=== PATIENT | female | born 1980 | race American Indian/Alaskan Native ===

== ENCOUNTER 2017-01-24 15:25 | Outpatient (CLI) | payer MEDICAID ==
--- NOTE | 2017-01-25 11:12 | Mammography Report ---
BILATERAL DIGITAL SCREENING MAMMOGRAM with CAD: 01/24/17 15:25:00 CLINICAL: Baseline screening. FINDINGS: The breasts are almost entirely fatty. No mass, architectural distortion or suspicious calcifications. IMPRESSION: No mammographic evidence of malignancy. BI-RADS CATEGORY: 1 - - Negative RECOMMENDATION: Routine mammographic screening in one year. COMMENT: Patient follow-up letters are generated by our [employer] application.
== END 2017-01-24 15:26 | disposition home or self-care (01) ==
LOC: SPVWC 15:25
PROVIDERS: ATTEND Obstetrics & Gynecology
DX: Z12.31 Encounter for screening mammogram for malignant neoplasm of breast (principal)
CPT/HCPCS: 77067; G0202

== ENCOUNTER 2019-03-06 09:47 | Day surgery (SDC) | payer MEDICAID ==
[2019-03-06] MEDS ORDERED: fentaNYL 250 MCG/5 ML INJ ONE (10:24)
[2019-03-06] MEDS ORDERED: PHENYLEPHRINE/NS 1,000 MCG/10 ML SYRINGE (OR USE) IV ONE (10:24)
[2019-03-06] MEDS ORDERED: dexAMETHasone 20 MG/5 ML VIAL ONE (10:24)
[2019-03-06] MEDS ORDERED: ONDANSETRON 4 MG/2 ML INJ ONE (10:24)
[2019-03-06] MEDS ORDERED: GLYCOPYRROLATE 0.4 MG/2 ML INJ ONE (10:24)
[2019-03-06] MEDS ORDERED: ROCURONIUM 50 MG/5 ML INJ IV ONE (10:24)
[2019-03-06] MEDS ORDERED: LIDOCAINE MPF (2%) 20 MG/1 ML VIAL 5 ML ONE (10:24)
[2019-03-06] MEDS ORDERED: NEOSTIGMINE 10MG/10 ML INJ MDV ONE (10:24)
[2019-03-06] MEDS ORDERED: BUPIVACAINE/PF (0.5%) 5 MG/1 ML 10 ML VIAL INFILTRATI ONE ×3 (10:25→12:04)
[2019-03-06] MEDS ORDERED: PROPOFOL 200 MG/20 ML VIAL IV ONE (10:25)
--- NOTE | 2019-03-06 10:44 | Anesthesia Consultation ---
Anesthesia Consult and Med Hx Date of service: 03/06/19 - Airway Anesthetic Teeth Evaluation: Good ROM Head & Neck: Adequate Mental/Hyoid Distance: Adequate Mallampati Class: Class II Intubation Access Assessment: Good - Pulmonary Exam CTA: Yes - Cardiac Exam Cardiac Exam: RRR - Pre-Operative Health Status ASA Pre-Surgery Classification: ASA2 Proposed Anesthetic Plan: General (HTN, Anxiety, Asthma) - Pulmonary Hx Asthma: Yes (PRN NEBS/INH) - Cardiovascular System Hx Hypertension: Yes (X 3YRS) - Central Nervous System Hx Seizures: No Hx Back Pain: Yes Hx Psychiatric Problems: Yes - Endocrine Hx Renal Disease: No Hx Hypothyroidism: No Hx Hyperthyroidism: No - Hematic Hx Anemia: No Hx Sickle Cell Disease: No - Other Systems Hx Alcohol Use: Yes Hx Substance Use: No Hx Obesity: Yes
--- NOTE | 2019-03-06 10:44 | Anesthesia Day of Surgery ---
Anesthesia Day of Surgery - Day of Surgery Patient Examined: Yes Patient H&P Reviewed: Yes Patient is NPO: Yes
[2019-03-06] MEDS ORDERED: fentaNYL 100 MCG/2 ML INJ IV PRN (10:45)
[2019-03-06] MEDS ORDERED: ONDANSETRON 4 MG/2 ML INJ IV PRN (10:45)
[2019-03-06] MEDS ORDERED: LACTATED RINGERS 1,000 ML IV SCH (11:00)
[2019-03-06] MEDS ORDERED: MIDAZOLAM 2 MG/2 ML INJ IV NR (11:00)
--- NOTE | 2019-03-06 11:15 | Short Stay Summary ---
Short Stay Documentation Date of service: 03/06/19 Narrative H&P: 38y/o with acute pelvic pain. Pelvic ultrasound demonstrated findings of a right ovarian cyst. The patient states the pain is worsening. - History Principal diagnosis: Ovarian cyst Past Medical History: hypertension, other (bronchitis) Past Surgical History: Other (laparoscopy) Social history: single - Allergies and Medications Current Medications: Allergies No Known Allergies Allergy (Unverified 05/22/14 14:22) Home Medications Medication Instructions Recorded Confirmed Last Taken Type ALBUTEROL Inhaler (OR & NICU) 2 puff IH QID PRN 05/22/14 03/05/19 05/22/14 History [Proair] ALBUTEROL NEB's [Proventil 0.083% 1 applic PO BID 05/22/14 03/05/19 05/22/14 History NEBS] ALPRAZolam [Xanax TAB] 0.25 mg PO TID PRN 03/05/19 03/05/19 Unknown History Bupropion HCl [Wellbutrin XL] 300 mg PO QAM 03/05/19 03/05/19 Unknown History Escitalopram [Lexapro] 10 mg PO DAILY 03/05/19 03/05/19 Unknown History Gabapentin [Neurontin] 300 mg PO Q8HR 03/05/19 03/05/19 Unknown History Losartan [Cozaar] 100 mg PO QDAY 03/05/19 03/05/19 Unknown History Zolpidem [Ambien] 5 mg PO QHS PRN 03/05/19 03/05/19 Unknown History cloNIDine [Catapres] 0.1 mg PO BID 03/05/19 03/05/19 Unknown History Active Medications Fentanyl (Sublimaze) 50 mcg IV Q5MIN PRN PRN Reason: Pain , Severe (7-10) Stop: 03/06/19 23:59 Lactated Ringer's (Lactated Ringers) 1,000 mls @ 100 mls/hr IV DIRECT MADHU Midazolam HCl (Versed) 2 mg IV PREOP NR Stop: 03/06/19 23:59 Ondansetron HCl (Zofran) 4 mg IV ONCE PRN PRN Reason: Nausea And Vomiting - Physical exam General appearance: no acute distress Integumentary: no rash HEENT: Atraumatic Lungs: Clear to auscultation Breasts: deferred Heart: Regular rate Gastrointestinal: normal Female Genitourinary: deferred Rectal Exam: deferred Extremities: no ischemia Neurological: Normal gait - Brief post op/procedure progress note Date of procedure: 03/06/19 Pre-op diagnosis: ovarian cyst; pelvic pain Post-op diagnosis: same Procedure: Laparoscopy Ovarian cystotomy Anesthesia: GETA Surgeon: LEW ARROYO Estimated blood loss: minimal Pathology: list (ovarian cyst fluid) Specimen disposition: to lab Condition: stable - Hospital course Hospital course: The patient was admitted the day of surgery and underwent a laparoscopy. Please see operative note for details of surgery. Postoperative course was uneventful. - Disposition Condition at discharge: Good Disposition: DC-01 TO HOME OR SELFCARE Short Stay Discharge Plan Activity: other (pelvic rest for 1 week) Diet: regular Additional Instructions: Schedule follow-up with Dr. Holly in 2-4 weeks Prescriptions: Ibuprofen [Motrin] 800 mg PO Q8HR PRN #60 tablet PRN Reason: Pain, Mild (1-3) oxyCODONE /ACETAMINOPHEN [Percocet 5/325] 1 tab PO Q6HR PRN #20 tablet PRN Reason: Pain
[2019-03-06] MEDS ORDERED: SODIUM CHLORIDE 0.9% IRR 1,500 ML BOTTLE IR ONE (12:08)
[2019-03-06] MEDS ORDERED: SUGAMMADEX SODIUM 200 MG/2 ML VIAL IV ONE (12:13)
--- NOTE | 2019-03-06 12:20 | Operative Report ---
Operative Report Operative Report: Date of surgery: 03/06/2019 Preoperative diagnosis: Right ovarian cyst; acute pelvic pain Postoperative diagnosis: Same as above Procedure: Laparoscopy; ovarian cystotomy Surgeon: Catia Holly M.D. Anesthesia: General endotracheal anesthesia Estimated blood loss: minimal Findings: Right ovarian simple cyst; normal uterus and tubes Indication: 38-year-old with a history of worsening pelvic pain. Pelvic ultrasound was performed that demonstrated findings of a right ovarian cyst approximately 3.4 cm. Procedure: The patient was taken to the operating room and given general endotracheal anesthesia without complication. The patient is prepped and draped in a normal sterile fashion. A bivalve speculum was placed in the patient's vagina and a single-tooth tenaculum was placed on the anterior lip of the cervix .A uterine acorn manipulator was placed, and the bivalve speculum was then removed. Attention was then turned to the patient's abdomen where a 5 mm infraumbilical skin incision was then made. A Veress needle was placed and peritoneal entry was verified water-filled syringe. Insufflation of the peritoneal cavity was performed with CO2 gas. A 5 mm trocar was placed and the laparoscope was then inserted. The patient was then placed in Trendelenburg. A 5 mm suprapubic skin incision was then made. Under direct visualization a 5 mm trocar was then placed. General survey of the patient's abdomen revealed simple right ovarian cyst, normal uterus and tubes bilaterally, normal left ovary. Attention was then turned to the patient's right ovary. A syringe was injected into the ovarian cortex with aspiration of clear cystic fluid. The fluid was sent to cytology for further evaluation. It was no evidence of active bleeding coming from the ovary. General survey of the pelvis did not indicate findings of endometriosis or pelvic adhesive disease. The 5 mm trocar was then removed. The pneumoperitoneum was then released. The 5 mm Optiview trocar was then removed. The skin incisions were then closed with 4-0 Monocryl. The incisions were injected with quarter percent Marcaine. Dressings were applied to the incision. The vaginal instruments were then removed atraumatically. Then successfully extubated and taken to the recovery room. All sponge laps and needle counts were correct x2.
[2019-03-06] MEDS ORDERED: oxyCODONE /ACETAMINOPHEN 5-325MG TAB PO PRN (13:10)
--- NOTE | 2019-03-06 13:46 | Post Anesthesia Evaluation ---
- Post Anesthesia Evaluation Patient Participated: Yes Airway Patent: Yes Stable Respiratory Function: Yes Nausea/Vomiting: No Temp > 96.8F: Yes Pain Manageable: Yes Adequeate Hydration: Yes Anesthesia Complications: No Block Receding Appropriately: Not Applicable Patient on Ventilator: No
[2019-03-06 14:45] VITALS: BP 135/87
== END 2019-03-06 14:35 | disposition home or self-care (01) ==
LOC: OR 09:47
PROVIDERS: ATTEND Obstetrics & Gynecology
DX: N83.201 Unspecified ovarian cyst, right side (principal); I10 Essential (primary) hypertension; J45.909 Unspecified asthma, uncomplicated; F41.9 Anxiety disorder, unspecified; E66.9 Obesity, unspecified; Z72.89 Other problems related to lifestyle; Z88.8 Allergy status to other drugs, medicaments and biological substances; Z79.899 Other long term (current) drug therapy; Z68.41 Body mass index [BMI] 40.0-44.9, adult; Z98.890 Other specified postprocedural states
CPT/HCPCS: 58679; 81025; 88112; J1100; J2370; J2405; J2704; J2710; J3010; J7120

== ENCOUNTER 2020-07-29 08:23 | Day surgery (SDC) | payer MEDICAID ==
[~2020-07-29 08:23] MED LIST: SODIUM CHLORIDE 0.9% 1000 ML 1,000 ML IV SCH
--- NOTE | 2020-07-29 10:23 | Operative Report ---
Operative Report Operative Report: DATE: 07/29/2020 SURGERY: Upper endoscopy. SURGEON: Mandi Chester M.D. PROCEDURE: EGD with biopsy PRE OP DX: morbid obesity, GERD POST OP DX: morbid obesity, GERD TYPE OF ANESTHESIA: MAC. ESTIMATED BLOOD LOSS: None. COMPLICATIONS: None. SPECIMENS REMOVED: antral biopsy FINDINGS: 1. Small hiatal hernia. 2. Otherwise, normal esophagus, stomach and first portion of duodenum. INDICATIONS:INDICATION FOR PROCEDURE: Patient is a 39-year-old female with a long history of morbid obesity. She is planned to have a weight loss procedure and is here for preoperative planning EGD. PROCEDURE DETAILS: After consent was reviewed, patient was taken back to the operating room where patient was placed in the left lateral decubitus position and a bite block was placed in the mouth. After a time-out was called, MAC anesthesia was initiated. I then passed the endoscope into her oropharynx, into her esophagus, visualized the entire esophagus, which was all within normal limits. Z-line was noted to about 36 cm from incisors. I then visualized the stomach and the first portion of the duodenum and there were no abnormalities I could clearly visualize except for antral gastritis. A cold forceps biopsy of the antrum was taken and will be sent to pathology to evaluate for H.pylori. I then retroflexed the scope in the stomach and visualized the hiatus and I could see a small hiatal hernia. I then desufflated the stomach and removed the endoscope. Patient tolerated procedure well and was transferred to recovery room in good and stable condition.
--- NOTE | 2020-07-29 10:23 | Discharge Summary ---
Providers - Providers Date of Admission: 07/29/2020 Date of discharge: 07/29/20 Attending physician: TOMI WARNER MD Primary care physician: LINUX DEVELOPER Hospitalization Reason for admission: pre-op egd for bariatric surgery Condition: Good Procedures: egd with bx Hospital course: Pt presented for a pre-op EGD as part of planning for up coming bariatric surgery. Procedure was uneventful and pt recovered well and was discharged to home. Disposition: DC- TO HOME OR SELFCARE Final Discharge Diagnosis (Prints w/discharge instructions): morbid obesity, dyspepsia Core Measure Documentation - Palliative Care Palliative Care/ Comfort Measures: Not Applicable - Core Measures Any of the following diagnoses?: none Exam - Physical Exam Narrative exam: unchanged from pre-op Plan Diet: low carbohydrate Follow up with: PRIMARY CAREMD [Primary Care Provider] - 7 Days
--- NOTE | 2020-07-29 10:44 | Anesthesia Consultation ---
Anesthesia Consult and Med Hx Date of service: 07/29/20 - Airway Anesthetic Teeth Evaluation: Good ROM Head & Neck: Adequate Mental/Hyoid Distance: Inadequate Mallampati Class: Class III - Pulmonary Exam CTA: Yes - Pre-Operative Health Status ASA Pre-Surgery Classification: ASA3 Proposed Anesthetic Plan: MAC - Pulmonary Hx Asthma: Yes (PRN NEBS/INH) - Cardiovascular System Hx Hypertension: Yes (X 3YRS) Hx Heart Attack/AMI: No Hx Angina: No - Central Nervous System Hx Seizures: No Hx Back Pain: Yes Hx Psychiatric Problems: Yes (Anxiety/Depression) - Endocrine Hx Renal Disease: No Hx Liver Disease: No Hx Insulin Dependent Diabetes: No Hx Non-Insulin Dependent Diabetes: No Hx Hypothyroidism: No Hx Hyperthyroidism: No - Hematic Hx Anemia: No Hx Sickle Cell Disease: No - Other Systems Hx Alcohol Use: Yes Hx Substance Use: Yes (Marijuana) Hx Obesity: Yes (BMI 42.3kg)
--- NOTE | 2020-07-29 10:45 | Anesthesia Day of Surgery ---
Anesthesia Day of Surgery - Day of Surgery Patient Examined: Yes Patient H&P Reviewed: Yes Patient is NPO: Yes Beta Blockers: No Cardiac Clearance: No Pulmonary Clearance: No Ced's Test: N/A
[2020-07-29] MEDS ORDERED: fentaNYL 100 MCG/2 ML INJ ONE (10:47)
[2020-07-29] MEDS ORDERED: propofoL 200 MG/20 ML VIAL IV ONE (10:47)
[2020-07-29] MEDS ORDERED: ONDANSETRON 4 MG/2 ML INJ ONE (10:47)
[2020-07-29 12:41] VITALS: BP 108/71
[2020-07-30] MEDS ORDERED: LIDOCAINE MPF (2%) 20 MG/1 ML VIAL 5 ML ONE (12:21)
[2020-07-30] MEDS ORDERED: propofoL 200 MG/20 ML VIAL IV ONE (12:21)
[2020-07-30] MEDS ORDERED: fentaNYL 100 MCG/2 ML INJ ONE (12:22)
[2020-07-30] MEDS ORDERED: ROCURONIUM 50 MG/5 ML INJ IV ONE (12:22)
[2020-07-30] MEDS ORDERED: ONDANSETRON 4 MG/2 ML INJ ONE (12:28)
[2020-07-30] MEDS ORDERED: dexAMETHasone 20 MG/5 ML VIAL ONE (12:28)
== END 2020-07-29 12:05 | disposition home or self-care (01) ==
LOC: GIO 08:23
PROVIDERS: ATTEND Surgery
DX: K21.9 Gastro-esophageal reflux disease without esophagitis (principal); E66.01 Morbid (severe) obesity due to excess calories; K44.9 Diaphragmatic hernia without obstruction or gangrene; K29.70 Gastritis, unspecified, without bleeding; K31.89 Other diseases of stomach and duodenum; I10 Essential (primary) hypertension; J45.909 Unspecified asthma, uncomplicated; F41.9 Anxiety disorder, unspecified; Z98.890 Other specified postprocedural states; Z79.899 Other long term (current) drug therapy; Z88.8 Allergy status to other drugs, medicaments and biological substances; Z72.89 Other problems related to lifestyle; Z80.8 Family history of malignant neoplasm of other organs or systems; Z68.41 Body mass index [BMI] 40.0-44.9, adult
CPT/HCPCS: 43239; 81025; 88305; 88342; J2405; J2704; J3010; J7030; J1100

== ENCOUNTER 2020-07-30 11:09 | Day surgery (SDC) | payer MEDICAID ==
[2020-07-28 11:26] LABS: Hematocrit 38.2 % (30.3-42.9); Hemoglobin 13.1 gm/dl (10.1-14.3); Mean Corpuscular HGB Conc 34 % (30-34); Mean Corpuscular Volume 91 fl (79-97); Platelet Count 339 K/mm3 (140-440); Red Blood Count 4.21 M/mm3 (3.65-5.03); Red Cell Distribution Width 14.1 % (13.2-15.2)
[2020-07-28 11:41] LABS: BUN/Creatinine Ratio 10; Blood Urea Nitrogen 10 mg/dL (7-17); Calcium 9.3 mg/dL (8.4-10.2); Hemolysis Index 0
--- NOTE | 2020-07-29 22:25 | Short Stay Summary ---
Short Stay Documentation Date of service: 07/30/20 Narrative H&P: 39y/o with pelvic pain and findings of right ovarian cyst. The patient requests surgical management. Patient has been reassessed/reevaluated/re-examined. H&P has been reviewed. No interval changes. - History Principal diagnosis: Pelvic pain Past Medical History: other (bronchitis; ectopic ) Past Surgical History: Other (laparoscopy) Social history: single - Allergies and Medications Current Medications: Allergies hydrocodone Allergy (Verified 07/24/20 16:16) Itching tramadol Adverse Reaction (Verified 07/24/20 16:30) Stomach cramps Home Medications Medication Instructions Recorded Confirmed Last Taken Type Albuterol Mdi (or & Nicu Only) 2 puff IH QID PRN 05/22/14 07/29/20 05/22/14 History [Proair] ALPRAZolam [Xanax TAB] 2 mg PO TID PRN 03/05/19 07/29/20 07/29/20 07:00 History Bupropion HCl [Wellbutrin XL] 300 mg PO QAM 03/05/19 07/29/20 07/28/20 09:00 History Gabapentin [Neurontin] 400 mg PO BID 03/05/19 07/29/20 07/29/20 07:00 History Losartan [Cozaar] 100 mg PO QDAY 03/05/19 07/29/20 07/22/20 09:00 History Zolpidem [Ambien] 10 mg PO QHS PRN 03/05/19 07/29/20 07/28/20 20:00 History Ibuprofen [Motrin] 800 mg PO Q8HR PRN #60 tablet 03/06/19 07/29/20 Unknown Rx oxyCODONE /ACETAMINOPHEN [Percocet 1 tab PO Q6HR PRN #20 tablet 03/06/19 07/29/20 07/27/20 17:00 Rx 5/325] Buspirone HCl [busPIRone] 30 mg PO DAILY 07/28/20 07/29/20 07/28/20 09:00 History Cyclobenzaprine [Flexeril] 10 mg PO BID 07/28/20 07/29/20 07/28/20 17:00 History Norgestimate-Ethinyl Estradiol 1 each PO DAILY 07/28/20 07/29/20 07/29/20 07:00 History [Norg-Ethin Estra 0.25-0.035 mg] amLODIPine 10 mg PO DAILY 07/28/20 07/29/20 07/29/20 07:00 History hydroCHLOROthiazide [HCTZ] 25 mg PO DAILY 07/28/20 07/29/20 07/29/20 07:00 History - Physical exam General appearance: no acute distress Integumentary: no rash HEENT: Atraumatic Lungs: Clear to auscultation Breasts: deferred Heart: Regular rate Gastrointestinal: normal Female Genitourinary: deferred Rectal Exam: deferred - Brief post op/procedure progress note Date of procedure: 07/30/20 Pre-op diagnosis: Pelvic pain; ovarian cyst Post-op diagnosis: same Procedure: Laparoscopy Right ovarian cystectomy Anesthesia: GETA Surgeon: LEW ARROYO Estimated blood loss: minimal Pathology: list (Ovarian cyst wall) Specimen disposition: to lab Condition: stable - Hospital course Hospital course: The patient was admitted the day of surgery and underwent a laparoscopy and right ovarian cystectomy. Please see operative note for details of surgery. Her postoperative course was uneventful. - Disposition Condition at discharge: Good Disposition: DC-01 TO HOME OR SELFCARE Short Stay Discharge Plan Activity: other (Pelvic rest for 1 week) Diet: regular Additional Instructions: Patient may schedule follow-up with Dr. Arroyo in 2 weeks Prescriptions: Ibuprofen [Motrin] 800 mg PO Q8HR PRN #30 tablet PRN Reason: Pain , Severe (7-10) oxyCODONE /ACETAMINOPHEN [Percocet 5/325] 1 tab PO Q6HR PRN #20 tablet PRN Reason: Pain
[~2020-07-30 11:09] MED LIST changes: +BUPIVACAINE/PF (0.5%) 5 MG/1 ML 30 ML VIAL INFILTRATI ONE; -SODIUM CHLORIDE 0.9% 1000 ML 1,000 ML IV SCH
[2020-07-30] MEDS ORDERED: LACTATED RINGERS 1,000 ML ONE (12:36)
[2020-07-30] MEDS ORDERED: MIDAZOLAM 2 MG/2 ML INJ ONE (12:46)
--- NOTE | 2020-07-30 12:53 | Anesthesia Day of Surgery ---
Anesthesia Day of Surgery - Day of Surgery Patient Examined: Yes Patient H&P Reviewed: Yes Patient is NPO: Yes
--- NOTE | 2020-07-30 12:55 | Anesthesia Consultation ---
Anesthesia Consult and Med Hx Date of service: 07/30/20 - Airway Anesthetic Teeth Evaluation: Chipped ROM Head & Neck: Adequate Mental/Hyoid Distance: Adequate Mallampati Class: Class II Intubation Access Assessment: Good - Pre-Operative Health Status ASA Pre-Surgery Classification: ASA3 Proposed Anesthetic Plan: General - Pulmonary Hx Asthma: Yes (PRN NEBS/INH) - Cardiovascular System Hx Hypertension: Yes (X 3YRS) Hx Heart Attack/AMI: No (Negative ETT 2018) Hx Angina: No - Central Nervous System Hx Seizures: No Hx Back Pain: Yes Hx Psychiatric Problems: Yes (Anxiety/Depression) - Endocrine Hx Renal Disease: No Hx Liver Disease: No Hx Insulin Dependent Diabetes: No Hx Non-Insulin Dependent Diabetes: No Hx Hypothyroidism: No Hx Hyperthyroidism: No - Hematic Hx Anemia: No Hx Sickle Cell Disease: No - Other Systems Hx Alcohol Use: Yes Hx Substance Use: Yes (Marijuana) Hx Cancer: No Hx Obesity: Yes (BMI 42.3kg)
[2020-07-30] MEDS ORDERED: LACTATED RINGERS 1,000 ML IV SCH (13:00)
[2020-07-30] MEDS ORDERED: ONDANSETRON 4 MG/2 ML INJ IV PRN (13:00)
[2020-07-30] MEDS ORDERED: HYDROmorphone 1 MG/1 ML INJ IV PRN (13:00)
[2020-07-30] MEDS ORDERED: NEOSTIGMINE 10MG/10 ML INJ MDV ONE (13:46)
[2020-07-30] MEDS ORDERED: GLYCOPYRROLATE 0.4 MG/2 ML INJ ONE (13:46)
[2020-07-30] MEDS ORDERED: BUPIVACAINE/PF (0.5%) 5 MG/1 ML 30 ML VIAL INFILTRATI ONE (13:49)
[2020-07-30] MEDS ORDERED: SODIUM CHLORIDE 0.9% IRR 1,500 ML BOTTLE IR ONE (13:49)
--- NOTE | 2020-07-30 14:06 | Operative Report ---
Operative Report Operative Report: Date of surgery: July 30, 2020 Preoperative diagnosis: Acute pelvic pain; ovarian cyst Postoperative diagnosis: Same as above Procedure: Laparoscopy; right ovarian cystectomy Surgeon: Catia Holly M.D. Anesthesia: General endotracheal anesthesia Estimated blood loss: Minimal Findings: Right ovarian cyst approximately 3 cm Pathology: Ovarian cyst wall Indication: 39-year-old -0-2-3 with a history of pelvic pain. Pelvic ultrasound demonstrated findings of a right ovarian cyst. Procedure: The patient was taken to the operating room and given general endotracheal anesthesia without complication. The patient is prepped and draped in a normal sterile fashion. A bivalve speculum was placed in the patient's vagina and a single-tooth tenaculum was placed on the anterior lip of the cervix .A uterine acorn manipulator was placed, and the bivalve speculum was then removed. Attention was then turned to the patient's abdomen where a 5 mm infraumbilical skin incision was then made. A Veress needle was placed and peritoneal entry was verified water-filled syringe. Insufflation of the peritoneal cavity was performed with CO2 gas. A 5 mm trocar was placed and the laparoscope was then inserted. The patient was then placed in Trendelenburg. A 5 mm suprapubic skin incision was then made. Under direct visualization a 5 mm trocar was then placed. An additional 5 mm left lateral trocar was also placed. General survey of the patient's abdomen revealed normal uterus and tubes. Simple right ovarian cyst approximately 3 cm. Left ovary was normal in appearance. A monopolar scissors were used to incise the ovarian cortex. There was evidence of chris clear fluid expressed from the ovarian cyst. The ovarian cyst wall was removed with the laparoscopic graspers. Hemoblast was applied to the site for hemostasis. The trocars were then removed. The pneumoperitoneum was then released. The 5 mm trocar laparoscope was then removed. The skin incisions were then closed with 4-0 Monocryl. The incisions were injected with quarter percent Marcaine. Dressings were applied to the incision. The vaginal instruments were then removed atraumatically. Then successfully extubated and taken to the recovery room. All sponge laps and needle counts were correct x2.
[2020-07-30] MEDS: HYDROmorphone 1 MG/1 ML INJ IV PRN ×2 (14:32→14:42)
[2020-07-30 15:33] VITALS: BP 118/61
== END 2020-07-30 15:50 | disposition home or self-care (01) ==
LOC: OR 11:09
PROVIDERS: ATTEND Obstetrics & Gynecology
DX: R10.2 Pelvic and perineal pain (principal); N83.201 Unspecified ovarian cyst, right side; Z20.822 Contact with and (suspected) exposure to COVID-19; N83.11 Corpus luteum cyst of right ovary; G43.909 Migraine, unspecified, not intractable, without status migrainosus; I10 Essential (primary) hypertension; J45.909 Unspecified asthma, uncomplicated; E66.9 Obesity, unspecified; F32.9 Major depressive disorder, single episode, unspecified; F41.9 Anxiety disorder, unspecified; Z79.899 Other long term (current) drug therapy; Z88.8 Allergy status to other drugs, medicaments and biological substances; Z72.89 Other problems related to lifestyle; Z98.890 Other specified postprocedural states; Z80.8 Family history of malignant neoplasm of other organs or systems; Z68.41 Body mass index [BMI] 40.0-44.9, adult
CPT/HCPCS: 36415; 58662; 80048; 81025; 84703; 85027; 88305; 88342; J1100; J1170; J2250; J2405; J2704; J2710; J3010; J7030; J7120; U0003

== ENCOUNTER 2020-09-15 08:45 | Inpatient (IN) | payer MEDICAID ==
[2020-09-11 10:07] LABS: Hematocrit 37.5 % (30.3-42.9); Hemoglobin 13.2 gm/dl (10.1-14.3); Mean Corpuscular HGB Conc 35 % (30-34); Mean Corpuscular Volume 91 fl (79-97); Platelet Count 346 K/mm3 (140-440); Red Blood Count 4.11 M/mm3 (3.65-5.03); Red Cell Distribution Width 13.5 % (13.2-15.2)
[2020-09-11 10:31] LABS: Alanine Aminotransferase 19 units/L (7-56); Albumin 4.2 g/dL (3.9-5); BUN/Creatinine Ratio 16; Blood Urea Nitrogen 16 mg/dL (7-17); Hemolysis Index 0
--- NOTE | 2020-09-11 10:32 | Anesthesia Consultation ---
Anesthesia Consult and Med Hx Date of service: 09/15/20 - Airway Anesthetic Teeth Evaluation: Chipped ROM Head & Neck: Adequate Mental/Hyoid Distance: Adequate Mallampati Class: Class II Intubation Access Assessment: Good - Pre-Operative Health Status ASA Pre-Surgery Classification: ASA3 Proposed Anesthetic Plan: General - Pulmonary Hx Smoking: No Hx Asthma: Yes (INHALER PRN) Hx Sleep Apnea: No (HECTOR PRE SCREEN HIGH RISK) - Cardiovascular System Hx Hypertension: Yes (X 4 YRS) Hx Heart Attack/AMI: No (Negative ETT 2018) Hx Angina: No - Central Nervous System Hx Seizures: No Hx Back Pain: Yes (BACK PAIN WITH LEFT HIP PAIN) Hx Psychiatric Problems: Yes (PTSD/Anxiety/Depression) - Endocrine Hx Renal Disease: No Hx Liver Disease: No Hx Insulin Dependent Diabetes: No Hx Non-Insulin Dependent Diabetes: No Hx Hypothyroidism: No Hx Hyperthyroidism: No - Hematic Hx Anemia: No Hx Sickle Cell Disease: No - Other Systems Hx Alcohol Use: Yes Hx Substance Use: Yes (Marijuana) Hx Cancer: No Hx Obesity: Yes (BMI 42.3kg) - Additional Comments Anesthesia Medical History Comments: No paperwork available for review. Pt reports negative pulmonary and cardiac workups
[~2020-09-15 08:45] MED LIST changes: -BUPIVACAINE/PF (0.5%) 5 MG/1 ML 30 ML VIAL INFILTRATI ONE; +ENOXAPARIN 40 MG/0.4 ML INJ SUB-Q NR; +LACTATED RINGERS 1,000 ML IV SCH; +MIDAZOLAM 2 MG/2 ML INJ IV NR; +metroNIDAZOLE/NS 500 MG/100 ML 500 MG/100 ML BAG IV NR
[2020-09-15] MEDS ORDERED: metroNIDAZOLE/NS 500 MG/100 ML 500 MG/100 ML BAG IV NR (09:00)
--- NOTE | 2020-09-15 09:33 | Anesthesia Day of Surgery ---
Anesthesia Day of Surgery - Day of Surgery Patient Examined: Yes Patient H&P Reviewed: Yes Patient is NPO: Yes
[2020-09-15] MEDS ORDERED: MAGNESIUM SULFATE 2 GM/50 ML BAG IV ONE (09:46)
[2020-09-15] MEDS ORDERED: SUGAMMADEX SODIUM 200 MG/2 ML VIAL IV ONE (09:47)
[2020-09-15] MEDS ORDERED: SODIUM CHLORIDE P/F VIAL 10 ML 10 ML ONE (09:49)
[2020-09-15] MEDS ORDERED: KETAMINE/STERILE WATER 50 MG/ML SYRINGE ONE (09:49)
[2020-09-15] MEDS ORDERED: LIDOCAINE MPF (2%) 20 MG/1 ML VIAL 5 ML ONE ×5 (09:53→09:54)
[2020-09-15] MEDS ORDERED: BUPIVACAINE/PF (0.25%) 2.5 MG/ML 30 ML VIAL INFILTRATI ONE ×2 (09:55→11:01)
[2020-09-15] MEDS ORDERED: LIDOCAINE 1%/EPINEPHRINE 1:100,000 VIAL (20 ML) INFILTRATI ONE ×2 (09:55→11:01)
[2020-09-15] MEDS ORDERED: ONDANSETRON 4 MG/2 ML INJ IV PRN ×2 (10:00→12:31)
[2020-09-15] MEDS ORDERED: SCOPOLAMINE TRANSDERMAL PATCH 72 HR TD SCH (10:00)
[2020-09-15] MEDS ORDERED: ROCURONIUM 50 MG/5 ML INJ IV ONE (10:01)
[2020-09-15] MEDS: ACETAMINOPHEN IV 1,000 MG/100 ML BOTTLE IV NR ×3 (10:10→17:52)
[2020-09-15] MEDS ORDERED: dexAMETHasone 20 MG/5 ML VIAL ONE (10:44)
[2020-09-15] MEDS ORDERED: ONDANSETRON 4 MG/2 ML INJ ONE (10:44)
[2020-09-15] MEDS ORDERED: SODIUM CHLORIDE 0.9% IRR 1,500 ML BOTTLE IR ONE (11:01)
[2020-09-15] MEDS ORDERED: PHENYLEPHRINE/NS 1,000 MCG/10 ML SYRINGE (OR USE) IV ONE (11:13)
[2020-09-15] MEDS ORDERED: propofoL 200 MG/20 ML VIAL IV ONE (12:04)
[2020-09-15] MEDS ORDERED: oxyCODONE 5 MG TAB PO PRN ×2 (12:31→13:07)
[2020-09-15] MEDS ORDERED: METOCLOPRAMIDE 10 MG/2 ML INJ IV PRN (12:31)
[2020-09-15] MEDS ORDERED: SIMETHICONE 80 MG CHEW TAB PO PRN (12:31)
[2020-09-15] MEDS ORDERED: hydrALAZINE 20 MG/1 ML INJ IV PRN (12:31)
[2020-09-15] MEDS ORDERED: ALBUTEROL 8.5 GM MDI INHALATION IH PRN (12:35)
--- NOTE | 2020-09-15 12:44 | Operative Report ---
Operative Report Operative Report: DATE:09/15/2020 Surgeon: Mandi Chester MD [employer] Tax Assessor Collector surgeon: Kaia Barahona CSA, MD Pre-op Dx: morbid obesity Post-op Dx: morbid obesity Procedure: 1. laparoscopic sleeve gastrectomy, 2. hiatal hernia repair Anesthesia: GETA and TAP block EBL: <10ml Specimen: gastric remnant Complication: none immediate Indication: 39 year old female with a history of morbid obesity . Pt is here for sleeve gastrectomy for weight loss to achieve healthier weight and improve or resolve his co-morbidities. She expressed understanding of the risks and benefits. PROCEDURE IN DETAIL: After consent was reviewed, patient was taken back to the operating room, where patient was placed supine on the bed with both arms out. The patient's legs were doubly strapped to the bed. Patient had a foot board in place. Patient had a body warmer placed by anesthesia. General anesthesia was induced with successful endotracheal intubation. Patient was then prepped and draped in normal sterile surgical fashion. After a time-out was called, I made a stab incision in the left subcostal area and placed a Veress needle through this incision and insufflated the abdomen to 18 mmHg pressure. I then counted down a handsbreadth below the xiphoid process in the midline and slightly left lateral injected local anesthetic and made about 1 cm transverse incision. I then used a 5-mm Optiview trocar to enter into the abdomen. There was no gross injury to any intra-abdominal structures. I then placed a 30-degree scope through this port and inspected the abdomen. I then placed a 5-mm port in the right upper quadrant, and 1 5mm in the epigastric area below the costovertebral angle. I then placed a 15-mm port about a handsbreadth in the right mid abdomen. After which a 5mm port was placed in left upper quadrant port along the anterior axillary line in a similar fashion. A liver retractor was placed to the epigastric port to elevate the left lateral lobe and liver. There was a moderate hiatal hernia appreciated that was accentuated with right and left crural dissection via a posterior and anterior dissection. Hiatal hernia sac was dissected from the crura until the GE junction was resting about 2cm below the level of the diaphragm without tension. An anterior and posterior crura-plasty was preformed with U-stitches using surgidac suture. The anterior gastric fat pad was excised. Starting approximately 6 cm proximal to the pylorus, using a LigaSure device the short gastrics were taken all the way to the left luis. Once the lateral portion of the stomach was mobile anesthesia passed a 40 English bougie along the medial aspect to act as a stent. Using serial firings of endoscopic stapler to gold, followed by 4 blue, the lateral portion of the stomach was transected making sure to did not close to the 2 cm to the incisura. All staple loads were supported with Ethicon buttress strips. The sleeve stomach was seen to be without kink obstruction or twisting. The pressure was decreased to 10 mmHg. The staple line was inspected for approximately 5 minutes. There was no significant bleeding appreciated except for a slight loose at the most distal portion of the staple line. Bleeding was minimal and easily controlled with minimal cautery. Tisseel was then sprayed along the entirety of the staple line. The liver retractor was removed. A TAP block was performed with 60ml of 0.25% marcaine along bilateral mid axillary lines starting from the subcostal region to just below the level of the umbilicus This was after the gastric remnant was grasped and pulled into the 15 mm trocar site. The stomach was extracted via the 15 mm trocar site. After the fascia had to be stretched with a Grazyna clamp to easily remove the stomach, the fascia was closed using a manuela margie device at the level of the fascia with an 0 PDS. trocars were removed under direct visualization. All skin incisions were closed with 4-0 Monocryl followed by Dermabond. Patient was awoken, extubated, and taken to recovery stable condition. All counts were correct.
[2020-09-15] MEDS ORDERED: LACTATED RINGERS 1,000 ML IV SCH (12:45)
[2020-09-15] MEDS ORDERED: ALBUTEROL 2.5 MG/3 ML NEBU IH PRN (12:49)
[2020-09-15] MEDS ORDERED: fentaNYL 100 MCG/2 ML INJ ONE (13:31)
[2020-09-15] MEDS ORDERED: fentaNYL 100 MCG/2 ML INJ IV PRN (13:38)
--- NOTE | 2020-09-15 16:23 | Post Anesthesia Evaluation ---
- Post Anesthesia Evaluation Patient Participated: Yes Airway Patent: Yes Stable Respiratory Function: Yes Nausea/Vomiting: No Temp > 96.8F: Yes Pain Manageable: Yes Adequeate Hydration: Yes Anesthesia Complications: No
[2020-09-15] MEDS: KETOROLAC 30 MG/1 ML INJ IV SCH ×2 (17:19→20:30)
[2020-09-15] MEDS: MORPHINE 2 MG/1 ML INJ IV PRN ×2 (17:46→21:49)
[2020-09-15] MEDS: ceFAZolin/NS 1 GM/50 ML 1 GM/50 ML BAG IV SCH (17:53)
[2020-09-15] MEDS: PANTOPRAZOLE 40 MG INJ IV SCH (17:53)
[2020-09-15] MEDS: metroNIDAZOLE/NS 500 MG/100 ML 500 MG/100 ML BAG IV SCH (17:54)
[2020-09-15] MEDS: ACETAMINOPHEN IV 1,000 MG/100 ML BOTTLE IV SCH (17:58)
[2020-09-15] MEDS ORDERED: diphenhydrAMINE 50 MG/ML VIAL IV ONE (20:00)
[2020-09-15] MEDS ORDERED: ZOLPIDEM 5 MG TAB PO ONE (20:37)
[2020-09-15] MEDS ORDERED: GABAPENTIN 300 MG CAP PO SCH (22:00)
[2020-09-15] MEDS ORDERED: ALPRAZolam 0.25 MG TAB PO SCH (22:00)
[2020-09-15] MEDS: GABAPENTIN 400 MG CAP PO SCH (23:16)
[2020-09-16] MEDS: ACETAMINOPHEN IV 1,000 MG/100 ML BOTTLE IV SCH ×3 (00:34→11:28)
[2020-09-16] MEDS: ALPRAZolam 1 MG TAB PO SCH ×2 (00:44→10:28)
[2020-09-16] MEDS: metroNIDAZOLE/NS 500 MG/100 ML 500 MG/100 ML BAG IV SCH ×2 (01:56→11:29)
[2020-09-16] MEDS: MORPHINE 2 MG/1 ML INJ IV PRN ×2 (01:56→06:02)
[2020-09-16] MEDS: ceFAZolin/NS 1 GM/50 ML 1 GM/50 ML BAG IV SCH (06:02)
[2020-09-16] MEDS: KETOROLAC 30 MG/1 ML INJ IV SCH ×3 (06:16→14:04)
[2020-09-16 08:38] VITALS: BP 131/80
[2020-09-16 08:58] LABS: Basophils % (Auto) 0.3 % (0.0-1.8); Hematocrit 35.7 % (30.3-42.9); Hemoglobin 12.1 gm/dl (10.1-14.3); Lymphocytes # (Auto) 1.5 K/mm3 (1.2-5.4); Lymphocytes % (Auto) 17.2 % (13.4-35.0); Mean Corpuscular HGB Conc 34 % (30-34); Mean Corpuscular Volume 91 fl (79-97); Monocytes # (Auto) 0.7 K/mm3 (0.0-0.8); Monocytes % (Auto) 7.4 % (0.0-7.3); Platelet Count 298 K/mm3 (140-440); Red Blood Count 3.91 M/mm3 (3.65-5.03); Red Cell Distribution Width 13.4 % (13.2-15.2)
[2020-09-16 09:20] LABS: Alanine Aminotransferase 23 units/L (7-56); Albumin 3.5 g/dL (3.9-5); BUN/Creatinine Ratio 9; Blood Urea Nitrogen 8 mg/dL (7-17); Calcium 9.1 mg/dL (8.4-10.2); Hemolysis Index 1
[2020-09-16] MEDS ORDERED: amLODIPine 10 MG TAB PO SCH (10:00)
[2020-09-16] MEDS ORDERED: NON-FORMULARY EACH (Losartan [Cozaar] 100 MG Tablet) PO SCH (10:00)
[2020-09-16] MEDS ORDERED: NON-FORMULARY EACH (Amlodipine 10 MG) PO SCH (10:00)
[2020-09-16] MEDS ORDERED: ENOXAPARIN 40 MG/0.4 ML INJ SUB-Q SCH (10:00)
[2020-09-16] MEDS ORDERED: LOSARTAN 50 MG TAB PO SCH (10:00)
[2020-09-16] MEDS: GABAPENTIN 400 MG CAP PO SCH (10:27)
[2020-09-16] MEDS: PANTOPRAZOLE 40 MG INJ IV SCH (10:27)
[2020-09-16] MEDS ORDERED: SODIUM CHLORIDE 0.9% 1000 ML 1,000 ML ONE (11:36)
--- NOTE | 2020-09-16 18:14 | Discharge Summary ---
Providers - Providers Date of Admission: 09/15/20 08:45 Date of discharge: 09/16/20 Attending physician: TOMI WARNER MD 09/15/20 12:31 Physical Therapy Evaluation and Treat [CONS] Routine Comment: Reason For Exam: s/p bariatric surgery Primary care physician: LUCIANA HUANG MD Hospitalization Reason for admission: s/p lap gastric sleeve with hiatal hernia repair Condition: Good Procedures: lap sleeve gastrectomy with hiatal hernia repair Hospital course: pt had an uneventful sleeve gastrectomy followed by standard post op course. She had a standard post op course remaining afebrile, with normal vital signs. She was tolerating clear liquids, ambulating with pain controlled. She showed no clinical signs of leak or bleeding at discharge. Disposition: TO HOME OR SELFCARE Final Discharge Diagnosis (Prints w/discharge instructions): morbid obesity Core Measure Documentation - Palliative Care Palliative Care/ Comfort Measures: Not Applicable - Core Measures Any of the following diagnoses?: none Exam - Constitutional Vitals: Temp Pulse Resp BP Pulse Ox 98.4 F 92 H 16 131/80 99 09/16/20 07:37 09/16/20 10:27 09/16/20 07:37 09/16/20 10:27 09/16/20 08:47 General appearance: Present: no acute distress, obese - Respiratory Respiratory effort: normal - Extremities Extremities: no ischemia - Abdominal General gastrointestinal: Present: soft, other (incisions c/d/i, appropriatley tender to palpation) Plan Activity: advance as tolerated Diet: clear liquids Wound: open to air, keep clean and dry Additional Instructions: follow up in the office in two weeks Follow up with: PRIMARY MD SAL [Primary Care Provider] - 7 Days
--- OUTSIDE RECORDS SUMMARY | 2020-10-21 13:01 | External Medical Summary ---
:1980 Author Organization [facility], [facility] Address [address] [place] [address] Care Team Providers Name Role Phone Mandi Chester Unavailable [phone] PROBLEMS Type Condition ICD9-CM [id number] Onset Condition W/U Status Risk SNOM ED Notes Code Code Dates Status Code Problem Functional K30 Active confirmed 0628791 dyspepsia Problem Major F32.9 Active confirmed 26285509 depressive disorder, single episode, unspecified Problem Morbid E66.01 Active confirmed 779446684 (severe) obesity due to excess calories Problem Essential I10 Active confirmed 75062800 (primary) hypertension Problem Gastro-esopha K21.9 Active confirmed 455941 005 geal reflux disease without esophagitis Problem Unspecified J45.909 Active confirmed 8802019 0 asthma, uncomplicated Problem Anxiety F41.9 Active confirmed 922982285 disorder, unspecified ALLERGIES Allergen (clinical drug Drug/Non Drug Allergy Reaction Allergy Type Onset Date Status ingredient) documented on EMR tramadol Tramadol Unknown Drug Allergy Active hydrocodone Hydrocodone Unknown Drug Allergy Active ENCOUNTERS from 1981 to 2020-09-12 Encounter Location Date Provider Diagnosis [facility] [place], Mandi Chester Morbi d (severe) [address] [place] obesity due to excess of [place], [place] calorie s E66.01 ; [address] Essential (prim devan) hypertension I1 0 ; Gastro-esophage al reflux disease without esophagitis K21 .9 ; Anxiety disorde r, unspecified F41 .9 ; Major depressiv e disorder, singl e episode, unspec ified F32.9 and Low b ack pain M54.5 IMMUNIZATIONS No Information SOCIAL HISTORY Sex Assigned At : Social History Observation Description Sex Assigned At Unknown REASON FOR REFERRAL from 1980 to 2020-09-12 Diagnosis 1 Gastro-esophageal reflux dis ease without esophagitis (K21.9) Diagnosis 2 Essential (primary) hyperten christiano (I10) Diagnosis 3 Morbid (severe) obesity due to excess calories (E66.01) Diagnosis 4 Major depressive disorder, s holden episode, unspecified (F32.9) Diagnosis 5 Anxiety disorder, unspecifie d (F41.9) Diagnosis 6 Unspecified asthma, uncompli cated (J45.909) Diagnosis 7 Functional dyspepsia (K30) Diagnosis 8 Low back pain (M54.5) Referral Organization [facility] Referring Provider First Name Mandi Referring Provider Last Name Nemo Referring Provider Specialty Surgery Referred Provider [facility], - Referral Priority Routine VITAL SIGNS Height 62 in August, Weight 232.8 lbs August, Temperature 98.2 degrees Fahrenheit August, BMI 42.58 kg/m2 August, Blood pressure systolic 110 mm Hg August, Blood pressure diastolic 76 mm Hg August, MEDICATIONS Medication SIG (Take, Route, Notes Start Date End Date Status Frequency, Duration) Albuterol Active Zofran 4 MG 1-2 tablet Orally q 4-6 August, Active hours prn nausea for 30 day(s) Flexeril 10 mg 30 10 mg one tablet orally every 8 Active hours prn pain Gabapentin 400 MG 1 capsule Orally Once a Active day for 30 day(s) amLODIPine Besylate 10 MG 1 tablet Orally Once a Active day for 30 day(s) buPROPion HCl 300mg Active Percocet 10-325 MG 1 tablet as needed Orally Active every 6 hrs Xanax 2 MG 1 tablet Orally Twice a A ctive day Ibuprofen 800 MG 1 tablet with food or Active milk as needed Orally Three times a day Ambien 10 MG 1 tablet at bedtime as Active needed Orally Once a day busPIRone HCl 30 MG 1 tablet Orally Twice a Active day Hydrochlorothiazide-25 mg 1 tablet in the morning Active 25 MG Orally Once a day for 30 day(s) NexIUM 40 MG 1 capsule Orally Once a August, Active day for 30 day(s) Losartan Potassium 100 MG 1 tablet Orally Once a Active day for 30 day(s) PROCEDURES No Information RESULTS No Results REASON FOR VISIT pre op sleeve MEDICAL (GENERAL) HISTORY Type Description Date Medical History anxiety Medical History depression Medical History gerd Medical History htn Medical History back pain Medical History asthma/ bronchitis Surgical History right tubal ligation 2003 Surgical History R hip ligament surgery 2011 Surgical History L hand surgery 2013 Surgical History R ovarian cystectomy 2018 Surgical History R ovarian cystectomy 07/2020 Hospitalization History as above Goals Section No Information Health Concerns No Information MEDICAL EQUIPMENT No Information MENTAL STATUS No Information FUNCTIONAL STATUS No Information ASSESSMENTS Encounter Date Diagnosis Assessment Notes Treatment Notes Treatm ent Clinical Notes August, Morbid (severe) An hour was spent obesity due to with patient excess calories reinforcing diet, (ICD-10 - E66.01) vitamin requirements and lifestyle education, A quiz was administered and reviewed to verify understanding of intended procedure and post operative care. Consent forms were reviewed with patient and signed answering all questions, Pre-operative labs were ordered. August, Essential (primary) Should resolve or hypertension greatly improve (ICD-10 - I10) with weight loss after bariatric surgery August, Gastro-esophageal should improve with reflux disease weight loss after without esophagitis surgery (ICD-10 - K21.9) August, Anxiety disorder, will follow up with unspecified (ICD-10 mental health - F41.9) specialist about med management August, Major depressive will follow up with disorder, single specialist about episode, med management unspecified (ICD-10 - F32.9) August, Low back pain should improve with (ICD-10 - M54.5) weight loss and will continue to follow up pain management PLAN OF TREATMENT Medication Medication Name Sig Start Date Stop Date NexIUM 40 MG 1 capsule Orally Once a day for 30 day(s) August Zofran 4 MG 1-2 tablet Orally q 4-6 hours prn nausea for August, 30 day(s) Treatment Notes Assessment Notes Clinical Notes Morbid (severe) obesity due to An hour was spent with patien t excess calories reinforcing diet, vitamin requirements and lifestyle education, A quiz was administered and reviewed to verify understanding of intended procedure and post operative care. Consent forms were reviewed with patient and signed answering all questions, Pre-operative labs were ordered. Essential (primary) hypertension Should resolve or greatly i mprove with weight loss after bariatric surgery Gastro-esophageal reflux disease should improve with weight loss without esophagitis after surgery Anxiety disorder, unspecified will follow up with mental [facility] specialist about med management Major depressive disorder, single will follow up with specia list episode, unspecified about med management Low back pain should improve with weight loss and will continue to follow up pain management Referrals Referral Date Details Next Appt Details for surgery Reason: Provider Name:Mandi Chester, 06-0 7 09:00:00 AM, [address] [place], [place], [address], Insurance Providers Payer Name Payer Address Payer Insured Name Patient Coverage [place] ver[place] End Phone Relationship to Start Date Gibson e Insured [employer] [address] [address] [phone] Noa Roca /RODRIGO [id number] [id number]
== END 2020-09-16 16:30 | disposition home or self-care (01) | DRG 621 ==
LOC: 3A 08:45 → EDSTATUS 10:30 → 3B-SURG 13:57
PROVIDERS: ADMIT Surgery; ATTEND Surgery
PROC: 0DB64Z3 Excision of Stomach, Percutaneous Endoscopic Approach, Vertical (ICD-10-PCS; principal; 2020-09-15)
PROC: 0BUT4JZ Supplement Diaphragm with Synthetic Substitute, Percutaneous Endoscopic Approach (ICD-10-PCS; 2020-09-15)
DX: E66.01 Morbid (severe) obesity due to excess calories (principal); Z68.41 Body mass index [BMI] 40.0-44.9, adult; K44.9 Diaphragmatic hernia without obstruction or gangrene; I10 Essential (primary) hypertension; E11.9 Type 2 diabetes mellitus without complications; F41.9 Anxiety disorder, unspecified; K21.9 Gastro-esophageal reflux disease without esophagitis; M54.5 Low back pain; Z88.8 Allergy status to other drugs, medicaments and biological substances; Z71.3 Dietary counseling and surveillance; Z82.5 Family history of asthma and other chronic lower respiratory diseases; Z84.89 Family history of other specified conditions; Z82.49 Family history of ischemic heart disease and other diseases of the circulatory system; Z98.51 Tubal ligation status
CPT/HCPCS: 36415; 80053; 84703; 85025; 85027; 88307; 88342; G0378; C9113; C9250; J0131; J0690; J1100; J1650; J1885; J2270; J2370; J2405; J2704; J3010; J3475; J3490; J7030; U0003